=== PATIENT | female | born 1965 | race Caucasian/White ===

== ENCOUNTER 2019-05-03 12:43 | Emergency (ER) | payer MEDICARE, MEDICAID ==
[~2019-05-03] VITALS: Ht 172.7 cm; Wt 67.0 kg
[~2019-05-03 12:43] MED LIST: ARIP5TAB4 PO; HYDR-3567 PO; QUET-1 PO
[2019-05-03 12:47] VITALS: BP 143/81
--- NOTE | 2019-05-03 12:55 | NUR ---
PT PROVIDED URINE SAMPLE WITH NURSE IN RESTROOM MONITORING.
== END 2019-05-03 13:49 | disposition home or self-care (01) ==
LOC: ER 12:44
DX: R01.1 Cardiac murmur, unspecified (principal); G89.29 Other chronic pain; F32.9 Major depressive disorder, single episode, unspecified; Z98.890 Other specified postprocedural states; Z88.2 Allergy status to sulfonamides; Z88.6 Allergy status to analgesic agent; Z79.899 Other long term (current) drug therapy
CPT/HCPCS: 99281

== ENCOUNTER 2019-05-17 09:38 | Emergency (ER) | payer MEDICARE, MEDICAID ==
[~2019-05-17] VITALS: Ht 172.7 cm; Wt 63.6 kg
[2019-05-17 09:39] VITALS: BP 124/66
[2019-05-17] MEDS ORDERED: ketorolac trometh inj. 60 MG/2 ML VIAL IM ONE (11:10)
[2019-05-17] MEDS ORDERED: ORPH100T2 PO (11:34)
== END 2019-05-17 12:12 | disposition home or self-care (01) ==
LOC: ER 09:39
DX: M25.511 Pain in right shoulder (principal); M79.18 Myalgia, other site; M50.323 Other cervical disc degeneration at C6-C7 level; G89.29 Other chronic pain; F32.9 Major depressive disorder, single episode, unspecified; Z98.890 Other specified postprocedural states; Z88.2 Allergy status to sulfonamides; Z79.899 Other long term (current) drug therapy
CPT/HCPCS: 72040; 73030; 96372; 99283; J1885

== ENCOUNTER 2019-06-15 09:32 | Emergency (ER) | payer MEDICARE, MEDICAID ==
[~2019-06-15] VITALS: Ht 172.7 cm; Wt 68.0 kg
[~2019-06-15 09:32] MED LIST changes: +ORPH100T2 PO
[2019-06-15 09:51] VITALS: BP 132/76
== END 2019-06-15 11:55 | disposition home or self-care (01) ==
LOC: ER 09:32
DX: G56.03 Carpal tunnel syndrome, bilateral upper limbs (principal); G89.29 Other chronic pain; Z87.891 Personal history of nicotine dependence; Z88.2 Allergy status to sulfonamides; Z79.899 Other long term (current) drug therapy
CPT/HCPCS: 29125; 99283

== ENCOUNTER 2020-05-21 18:33 | Emergency (ER) | payer MEDICARE, MEDICAID ==
[~2020-05-21] VITALS: Ht 172.7 cm; Wt 66.0 kg
[~2020-05-21 18:33] MED LIST changes: +ARIP5TAB14 PO; -ARIP5TAB4 PO
[2020-05-21 19:20] LABS: BASOPHILS % (AUTO) 0.4 % (0-1); EOSINOPHILS % (AUTO) 0.1 % (0-6); HEMATOCRIT 41.4 % (35.0-45.0); HEMOGLOBIN 13.8 g/dl (12.0-16.0); LYMPHOCYTES # (AUTO) 1.1 X10'3 (1.1-4.8); LYMPHOCYTES % (AUTO) 12.3 % (21-51); MEAN CORPUSCULAR HEMOGLOBIN 30.3 PG (27.0-31.0); MEAN CORPUSCULAR HGB CONC 33.3 g/dL (33.0-36.5); MEAN CORPUSCULAR VOLUME 90.9 FL (78-98); MONOCYTES # (AUTO) 0.7 X10'3 (0-0.9); MONOCYTES % (AUTO) 8.1 % (2-12); NEUTROPHILS # (AUTO) 7.1 X10'3 (1.8-7.7); NEUTROPHILS % (AUTO) 79.1 % (42-75); PLATELET COUNT 313 X10'3 (140-440); RED BLOOD COUNT 4.56 X10'6 (4.20-5.60); RED CELL DISTRIBUTION WIDTH 15.8 % (11.5-14.5)
[2020-05-21 19:27] LABS: ALANINE AMINOTRANSFERASE 24 U/L (12-78); ALBUMIN 4.7 G/DL (3.4-5.0); ALBUMIN/GLOBULIN RATIO 1.3 (1.1-1.5); ALKALINE PHOSPHATASE 68 IU/L (46-116); ANION GAP 12 (8-16); ASPARTATE AMINO TRANSFERASE 28 U/L (10-37); BILIRUBIN,TOTAL 0.6 MG/DL (0.1-1.0); BLOOD UREA NITROGEN 14 MG/DL (7-18); BUN/CREATININE RATIO 17.3 (6.6-38.0); CHLORIDE 92 MMOL/L (99-107); CREATININE 0.81 MG/DL (0.40-0.90); GLUCOSE 105 MG/DL (70-104); LIPASE 122 U/L (73-393); POTASSIUM 3.5 MMOL/L (3.5-5.1); SODIUM 130 MMOL/L (135-145); TOTAL CARBON DIOXIDE 25.6 MMOL/L (24-32); TOTAL PROTEIN 8.2 G/DL (6.4-8.2); eGFR 74 ML/MIN
[2020-05-21] MEDS ORDERED: proCHLORperazine 10 MG/2 ml inj IM ONE (19:30)
[2020-05-21 19:34] LABS: CLARITY,URINE CLEAR (Clear); COLOR,URINE YELLOW (Yellow); GLUCOSE, URINE NEGATIVE (Neg); KETONES,URINE 40 mg/dl (Neg); LEUKOCYTE ESTERASE ,URINE NEGATIVE (Neg); NITRITES, URINE NEGATIVE (Neg); OCCULT BLOOD,URINE SMALL (Neg); PROTEIN,URINE >=300 mg/dl (Neg); UROBILINOGEN,URINE 0.2 E.U/dL (0.2-1.0)
[2020-05-21 19:35] LABS: UA COLLECTION TYPE CLN CATCH MIDSTREAM
[2020-05-21 19:51] LABS: SQUAMOUS EPITHELIAL CELL,UR FEW /LPF (FEW); TRANSITIONAL EPI CELLS,URINE FEW /HPF
[2020-05-21 19:52] LABS: BACTERIA,URINE 1+ /HPF (Neg); MUCUS STRANDS MODERATE /LPF (Neg); RBC,URINE 0-2 /HPF (0-2)
[2020-05-21 19:53] LABS: FINE GRANULAR CAST 0-3 /LPF (NEGATIVE); HYALINE CASTS 0-3 /LPF (NEGATIVE)
[2020-05-21 19:54] LABS: WBC CASTS 0-3 /LPF (NEGATIVE)
[2020-05-21] MEDS ORDERED: famotidine 20mg tablet PO ONE (20:05)
[2020-05-21] MEDS ORDERED: pantoprazole 40mg Tablet.DR PO ONE ×2 (20:05→20:45)
[2020-05-21] MEDS ORDERED: normal saline 1000ML IV soln IVB ONE (20:15)
[2020-05-21] MEDS ORDERED: sucralfate 1 gm tablet PO ONE (21:20)
[2020-05-21] MEDS ORDERED: LIDOcaine Viscous 15ml cup MM ONE (21:20)
[2020-05-21] MEDS ORDERED: mag hydrox/Alum hydrox/simeth 30ml oral suspension PO ONE (21:20)
[2020-05-21] MEDS ORDERED: SUCR1TAB PO (21:47)
[2020-05-21 22:28] VITALS: BP 133/80
== END 2020-05-21 22:26 | disposition home or self-care (01) ==
LOC: ER 18:34
DX: K29.70 Gastritis, unspecified, without bleeding (principal); E87.1 Hypo-osmolality and hyponatremia; R11.2 Nausea with vomiting, unspecified; R10.84 Generalized abdominal pain; G89.29 Other chronic pain; F32.9 Major depressive disorder, single episode, unspecified; Z90.89 Acquired absence of other organs; Z98.890 Other specified postprocedural states; Z72.89 Other problems related to lifestyle; Z88.2 Allergy status to sulfonamides; Z79.899 Other long term (current) drug therapy
CPT/HCPCS: 36415; 74176; 80053; 81001; 83690; 85025; 87088; 96360; 96372; 99284; J0780; J7030

== ENCOUNTER 2020-05-23 14:43 | Emergency (ER) | payer MEDICARE, MEDICAID ==
[~2020-05-23] VITALS: Ht 172.7 cm; Wt 66.8 kg
[~2020-05-23 14:43] MED LIST changes: +SUCR1TAB PO
[2020-05-23 16:07] LABS: BASOPHILS % (AUTO) 0.4 % (0-1); EOSINOPHILS % (AUTO) 0.2 % (0-6); HEMATOCRIT 40.7 % (35.0-45.0); HEMOGLOBIN 13.8 g/dl (12.0-16.0); LYMPHOCYTES # (AUTO) 1.9 X10'3 (1.1-4.8); LYMPHOCYTES % (AUTO) 20.2 % (21-51); MEAN CORPUSCULAR HEMOGLOBIN 31.2 PG (27.0-31.0); MEAN CORPUSCULAR HGB CONC 33.9 g/dL (33.0-36.5); MEAN CORPUSCULAR VOLUME 91.9 FL (78-98); MEAN PLATELET VOLUME 8.8 FL (7.4-10.4); MONOCYTES # (AUTO) 0.8 X10'3 (0-0.9); MONOCYTES % (AUTO) 8.9 % (2-12); NEUTROPHILS # (AUTO) 6.7 X10'3 (1.8-7.7); NEUTROPHILS % (AUTO) 70.3 % (42-75); PLATELET COUNT 291 X10'3 (140-440); RED BLOOD COUNT 4.43 X10'6 (4.20-5.60); RED CELL DISTRIBUTION WIDTH 15.7 % (11.5-14.5); WHITE BLOOD COUNT 9.5 X10'3 (4.5-11.0)
[2020-05-23 16:24] LABS: ALANINE AMINOTRANSFERASE 25 U/L (12-78); ALBUMIN 4.6 G/DL (3.4-5.0); ALBUMIN/GLOBULIN RATIO 1.4 (1.1-1.5); ALKALINE PHOSPHATASE 64 IU/L (46-116); AMYLASE 126 U/L (25-115); ANION GAP 8 (8-16); ASPARTATE AMINO TRANSFERASE 30 U/L (10-37); BILIRUBIN,TOTAL 0.7 MG/DL (0.1-1.0); BLOOD UREA NITROGEN 11 MG/DL (7-18); BUN/CREATININE RATIO 13.9 (6.6-38.0); CALCIUM 9.7 MG/DL (8.5-10.1); CHLORIDE 95 MMOL/L (99-107); CREATININE 0.79 MG/DL (0.40-0.90); GLUCOSE 94 MG/DL (70-104); LIPASE 229 U/L (73-393); POTASSIUM 3.1 MMOL/L (3.5-5.1); SODIUM 134 MMOL/L (135-145); TOTAL CARBON DIOXIDE 31.1 MMOL/L (24-32); TOTAL PROTEIN 7.8 G/DL (6.4-8.2); eGFR 76 ML/MIN
[2020-05-23] MEDS ORDERED: potassium Cl 20 mEq SR tablet PO ONE (18:15)
[2020-05-23] MEDS ORDERED: ondansetron/PF 4mg/2ml inj IV ONE (18:40)
[2020-05-23] MEDS ORDERED: normal saline 1000ml 1,000 ML IV ONE ×2 (18:40)
[2020-05-23] MEDS ORDERED: mag hydrox/Alum hydrox/simeth 30ml oral suspension PO ONE (18:40)
[2020-05-23] MEDS ORDERED: pantoprazole 40mg Tablet.DR PO ONE (18:40)
[2020-05-23] MEDS ORDERED: LIDOcaine Viscous 15ml cup MM ONE (18:40)
[2020-05-23 20:08] LABS: CLARITY,URINE CLEAR (Clear); COLOR,URINE YELLOW (Yellow); GLUCOSE, URINE NEGATIVE (Neg); KETONES,URINE 15 mg/dl (Neg); LEUKOCYTE ESTERASE ,URINE NEGATIVE (Neg); NITRITES, URINE NEGATIVE (Neg); OCCULT BLOOD,URINE NEGATIVE (Neg); PROTEIN,URINE TRACE mg/dl (Neg); UROBILINOGEN,URINE 0.2 E.U/dL (0.2-1.0)
[2020-05-23 20:10] LABS: UA COLLECTION TYPE CLN CATCH MIDSTREAM
[2020-05-23 20:19] LABS: SQUAMOUS EPITHELIAL CELL,UR FEW /LPF (FEW)
[2020-05-23 20:20] LABS: BACTERIA,URINE 2+ /HPF (Neg); RBC,URINE 0-2 /HPF (0-2); WBC CLUMPS,URINE FEW /HPF (NEGATIVE)
[2020-05-23] MEDS ORDERED: PANT20TA18 PO (20:40)
[2020-05-23] MEDS ORDERED: ketorolac tromethamine 15mg/ml inj. IV ONE (20:40)
[2020-05-23 20:57] VITALS: BP 105/60
== END 2020-05-23 20:59 | disposition home or self-care (01) ==
LOC: ER 14:44
DX: R11.2 Nausea with vomiting, unspecified (principal); R10.10 Upper abdominal pain, unspecified; R42 Dizziness and giddiness; G89.29 Other chronic pain; F32.9 Major depressive disorder, single episode, unspecified; Z90.49 Acquired absence of other specified parts of digestive tract; Z98.890 Other specified postprocedural states; Z72.89 Other problems related to lifestyle; Z88.2 Allergy status to sulfonamides; Z79.899 Other long term (current) drug therapy
CPT/HCPCS: 36415; 80053; 81001; 82150; 83690; 85025; 87088; 96374; 96375; 99285; J1885; J2405; J7030

== ENCOUNTER 2020-10-04 12:55 | Emergency (ER) | payer MEDICARE, MEDICAID ==
[~2020-10-04] VITALS: Ht 170.2 cm; Wt 60.5 kg
[~2020-10-04 12:55] MED LIST changes: +FLUO10CA28 PO; +ONDA4TAB6 PO; +PANT20TA18 PO
[2020-10-04] MEDS ORDERED: normal saline 1000ML IV soln IVB ONE ×2 (14:30→17:40)
[2020-10-04 15:49] LABS: URINE AMPHETAMINE SCREEN NEGATIVE (Neg); URINE BARBITUATE SCREEN NEGATIVE (Neg); URINE BENZODIAZEPINES SCREEN NEGATIVE (Neg); URINE CANNABINOID SCREEN POSITIVE (Neg); URINE COCAINE SCREEN NEGATIVE (Neg); URINE METHADONE SCREEN NEGATIVE (Neg); URINE OPIATE SCREEN NEGATIVE (Neg); URINE PHENCYCLIDINE SCREEN NEGATIVE (Neg)
[2020-10-04] MEDS ORDERED: ondansetron/PF 4mg/2ml inj IV ONE (16:30)
[2020-10-04] MEDS ORDERED: acetaminophen 325mg tablet PO ONE (18:00)
[2020-10-04] MEDS ORDERED: proCHLORperazine 10 MG/2 ml inj IV ONE (18:00)
--- NOTE | 2020-10-04 18:01 | NUR ---
patient having nausea and headache. Dr. Munoz notified, medications ordered.
[2020-10-04 20:25] VITALS: BP 113/72
== END 2020-10-04 20:26 | disposition home or self-care (01) ==
LOC: ER 12:56
DX: F10.120 Alcohol abuse with intoxication, uncomplicated (principal); Z91.81 History of falling; G89.29 Other chronic pain; F32.9 Major depressive disorder, single episode, unspecified; F17.200 Nicotine dependence, unspecified, uncomplicated; F12.90 Cannabis use, unspecified, uncomplicated; Z72.89 Other problems related to lifestyle; Z90.89 Acquired absence of other organs; Z98.890 Other specified postprocedural states; Z88.2 Allergy status to sulfonamides; Z79.899 Other long term (current) drug therapy; Y90.0 Blood alcohol level of less than 20 mg/100 ml
CPT/HCPCS: 36415; 70450; 80305; 80320; 96374; 96375; 99285; J0780; J2405; J7030